=== PATIENT | female | born 1945 | race Caucasian/White ===

== ENCOUNTER 2019-11-29 16:10 | Inpatient (IN) | payer MEDICARE, MEDICAID, SELFPAY ==
[2019-12-05 04:10] VITALS: BMI 48.5
[2019-12-06] MEDS: 0.9 % Sodium Chloride Flush 3 ML SYRINGE 2 ML IVFLUSH ×4 (05:42→23:59)
[2019-12-06] MEDS: HYDROmorphone HCl 1 MG/ML SYRINGE IVPUSH ×2 (05:42→15:36)
--- NOTE | 2019-12-06 10:26 | P.PNIM_ITS ---
Subjective Subjective Date of Service: 12/06/19 Interval History: appears comfortable Physical Exam Vital Signs and I&O and Narrative: Vital Signs and I&O: Intake & Output 12/05/19 12/06/19 12/06/19 18:59 06:59 18:59 Output Total 60 / 60 Balance -60 / -60 Urine Output (Aver age ml/kg/hr) 0.04 Output: Output, Urine Am ount 60 / 60 Other: Urine loyola cath Urine Color Yellow Body Mass Index 48.5 Const: General: comfortable Resp: Effort & Inspection: normal respiratory effort Objective Data Current Medications Generic Name Dose Route Start Last Admin Trade Name Freq PRN Reason Stop Dose Admin Acetaminophen 650 mg 12/06/19 00:00 Acetaminophen 325 Mg Tablet PO Q6H PRN Pain, Mild (Pain Scale 1-3)/FEVER Hydromorphone HCl 1 mg 12/06/19 00:00 12/06/19 05:42 Hydromorphone Hcl 1 Mg/Ml Syringe IVPUSH 1 mg Q30M PRN Administration Pain, Moderate (Pain Scale 4-6 Hydromorphone HCl 2 mg 12/06/19 00:00 Hydromorphone Hcl 2 Mg/Ml Vial IVPUSH Q30M PRN MOD PAIN OR NURSING MANUEVERS Lorazepam 1 mg 12/06/19 00:00 Lorazepam 2 Mg/Ml Vial IVPUSH Q6H PRN anxiety/restlessness Ondansetron HCl 4 mg 12/06/19 00:00 Ondansetron Hcl 4 Mg/2 Ml Vial IVPUSH Q8H PRN Nausea and Vomiting Sodium Chloride 2 ml 12/06/19 00:00 12/06/19 05:42 0.9 % Sodium Chloride Flush 3 Ml Syringe IVFLUSH 2 ml QSHIFT RABIA Administration Labs CBC & Chem 7: 12/02/19 05:35 12/02/19 05:35 Labs: Laboratory Results - last 24 hr 12/03/19 12/03/19 12/03/19 05:24 05:24 05:24 MCV 89.8 MCH 30.7 MCHC 34.2 RDW Coeff of Rafa 15.9 Plt Count 113 L MPV 13.1 H Immature Gran % (Auto) 0.6 H Neut % (Auto) 93.2 H Lymph % (Auto) 2.7 L [place] % (Auto) 2.4 Eos % (Auto) 0.8 Baso % (Auto) 0.3 Abs Immat Gran (auto) 0.11 H Absolute Lymphs (auto) 0.5 L Absolute Monos (auto) 0.5 Absolute Eos (auto) 0.2 Absolute Basos (auto) 0.1 Absolute Nucleated RBC 0.110 H Nucleated RBC % (auto) 0.6 H Absolute Neutrophils 17.6 H Smear Tech's Comments VERIFIED VBG pH 7.33 VBG pCO2 46 VBG pO2 52 VBG HCO3 24 VBG O2 Sat (Glen) 86.6 H VBG Base Excess -2.3 FiO2 . Bicarbonate 22 Anion Gap 18 Estimated Creat Clear 18.6 Est GFR (Non-Af Amer) 12 POC Glucose Random Glucose 266 H D Calcium 8.8 Phosphorus 4.8 H Magnesium 1.7 Albumin 3.1 L 12/03/19 12/03/19 07:30 11:31 MCV MCH MCHC RDW Coeff of Rafa Plt Count MPV Immature Gran % (Auto) Neut % (Auto) Lymph % (Auto) [place] % (Auto) Eos % (Auto) Baso % (Auto) Abs Immat Gran (auto) Absolute Lymphs (auto) Absolute Monos (auto) Absolute Eos (auto) Absolute Basos (auto) Absolute Nucleated RBC Nucleated RBC % (auto) Absolute Neutrophils Smear Tech's Comments VBG pH VBG pCO2 VBG pO2 VBG HCO3 VBG O2 Sat (Glen) VBG Base Excess FiO2 Bicarbonate Anion Gap Estimated Creat Clear Est GFR (Non-Af Amer) POC Glucose 236 H 243 H Random Glucose Calcium Phosphorus Magnesium Albumin
[2019-12-06] MEDS: HYDROmorphone HCl 2 MG/ML VIAL IVPUSH ×2 (20:15→23:59)
[2019-12-06 23:52] VITALS: RESP 15
[2019-12-07] MEDS: HYDROmorphone HCl 2 MG/ML VIAL IVPUSH ×7 (02:24→22:50)
[2019-12-07] MEDS: 0.9 % Sodium Chloride Flush 3 ML SYRINGE 2 ML IVFLUSH ×3 (07:36→22:50)
--- NOTE | 2019-12-07 12:11 | MHC.CM.PN ---
per multidis rounds pt remains comfort care
--- NOTE | 2019-12-07 13:00 | HO.PM.IMPN ---
Subjective Subjective Date of Service: 12/07/19 Interval History: appears comfortable Physical Exam Vital Signs and I&O and Narrative: Vital Signs and I&O: Vital Signs Resp 15 12/06/19 23:52 Intake & Output 12/06/19 12/07/19 12/07/19 18:59 06:59 18:59 Output Total 0 / 0 Balance 0 / 0 Urine Output (Aver age ml/kg/hr) 0.00 Output: Output, Urine Am ount 0 / 0 Other: NPO Yes Urine loyola Urine Color none Continuous Bladd er Irrigation Fluid - Amount I nstilled Urethral 0 Body Mass Index 48.5 Const: General: comfortable Resp: Effort & Inspection: normal respiratory effort Objective Data Current Medications Generic Name Dose Route Start Last Admin Trade Name Freq PRN Reason Stop Dose Admin Acetaminophen 650 mg 12/06/19 00:00 Acetaminophen 325 Mg Tablet PO Q6H PRN Pain, Mild (Pain Scale 1-3)/FEVER Hydromorphone HCl 1 mg 12/06/19 00:00 12/06/19 15:36 Hydromorphone Hcl 1 Mg/Ml Syringe IVPUSH 1 mg Q30M PRN Administration Pain, Moderate (Pain Scale 4-6 Hydromorphone HCl 2 mg 12/06/19 00:00 12/07/19 11:51 Hydromorphone Hcl 2 Mg/Ml Vial IVPUSH 2 mg Q30M PRN Administration MOD PAIN OR NURSING MANUEVERS Lorazepam 1 mg 12/06/19 00:00 Lorazepam 2 Mg/Ml Vial IVPUSH Q6H PRN anxiety/restlessness Ondansetron HCl 4 mg 12/06/19 00:00 Ondansetron Hcl 4 Mg/2 Ml Vial IVPUSH Q8H PRN Nausea and Vomiting Sodium Chloride 2 ml 12/06/19 00:00 12/07/19 07:36 0.9 % Sodium Chloride Flush 3 Ml Syringe IVFLUSH 2 ml QSHIFT RABIA Administration Labs CBC & Chem 7: 12/02/19 05:35 12/02/19 05:35 Assessment and Plan (1) Septic shock: Status: Acute (2) Bacteremia due to Pseudomonas: Status: Acute (3) Acute kidney injury: Status: Acute (4) Afib: Status: Acute Assessment and Plan: 74-year-old female was admitted to the ICU for septic shock, patient was transitioned to comfort measures only. She continues to look comfortable. has not required any med adjustements
[2019-12-07 18:59] VITALS: RESP 10
[2019-12-08] MEDS: HYDROmorphone HCl 2 MG/ML VIAL IVPUSH (04:10)
--- NOTE | 2019-12-08 06:36 | PC.NURSE ---
This Rn found pt not breating, md to floor to pronounce. time of [id number]
--- NOTE | 2019-12-08 07:59 | PM.DDS ---
Discharge Sum: Prov Provider Primary care physician: Unknown Physician Consults: 12/05/19 06:58 Consult to Wound Care Provider Routine Consulting Provider: Bay Silver 12/05/19 07:00 Consult to Infectious Diseases Routine Consulting Provider: Tabby Benton Reason for consultation: MEROPENEM APPROVAL Has provider been notified: Yes 12/05/19 07:05 Consult to General Surgery Routine Consulting Provider: Mahnaz Feldman Reason for consultation: LOW BP Has provider been notified: Yes Pronouncing clinician: Fabien Kumari Discharge Sum: Diag Contributing Factors (1) Septic shock: (2) Bacteremia due to Pseudomonas: (3) Acute kidney injury: (4) Afib: Discharge Sum: Summary Date and Time Date of admission: 11/29/19 16:10 Summary Details: patient was admitted for septic shock and acute renal failure. She was transitioned to comfort measures only. Patient peacefully on 12/08/2019 Additional Data Attending physician: Pieter Pandey MD
--- NOTE | 2019-12-10 07:54 | PM.DDS ---
Discharge Sum: Prov Provider Primary care physician: Unknown Physician Consults: 12/05/19 06:58 Consult to Wound Care Provider Routine Consulting Provider: Bay Silver 12/05/19 07:00 Consult to Infectious Diseases Routine Consulting Provider: Tabby Benton Reason for consultation: MEROPENEM APPROVAL Has provider been notified: Yes 12/05/19 07:05 Consult to General Surgery Routine Consulting Provider: Mahnaz Feldman Reason for consultation: LOW BP Has provider been notified: Yes Discharge Sum: Diag Contributing Factors (1) Septic shock: (2) Bacteremia due to Pseudomonas: (3) Acute kidney injury: (4) Afib: Discharge Sum: Summary Date and Time Date of admission: 11/29/19 16:10 Additional Data Attending physician: Pieter Pandey MD
== END 2019-12-08 10:40 | disposition expired | DRG 871 ==
PROVIDERS: Admitting Provider Internal Medicine Pulmonary Disease; Emergency Provider Physician Assistant; Visit Provider Internal Medicine
DX: A41.52 Sepsis due to Pseudomonas (principal); L89.154 Pressure ulcer of sacral region, stage 4; R65.21 Severe sepsis with septic shock; N17.0 Acute kidney failure with tubular necrosis; Z68.42 Body mass index [BMI] 45.0-49.9, adult; N39.0 Urinary tract infection, site not specified; I13.0 Hypertensive heart and chronic kidney disease with heart failure and stage 1 through stage 4 chronic kidney disease, or unspecified chronic kidney disease; I50.32 Chronic diastolic (congestive) heart failure; K81.0 Acute cholecystitis; E66.01 Morbid (severe) obesity due to excess calories; R79.1 Abnormal coagulation profile; B96.20 Unspecified Escherichia coli [E. coli] as the cause of diseases classified elsewhere; E11.22 Type 2 diabetes mellitus with diabetic chronic kidney disease; I48.91 Unspecified atrial fibrillation; N18.9 Chronic kidney disease, unspecified; Z87.440 Personal history of urinary (tract) infections; Z79.4 Long term (current) use of insulin; Z79.01 Long term (current) use of anticoagulants; Z79.82 Long term (current) use of aspirin; Z79.899 Other long term (current) drug therapy
CPT/HCPCS: 36415; 71045; 74018; 74176; 76705; 80048; 80051; 80053; 80076; 80202; 81001; 82040; 82565; 82803; 82947; 83605; 83735; 83880; 84100; 84520; 85007; 85025; 85027; 85610; 85730; 86850; 86900; 86901; 87040; 87077; 87088; 87186; 93005; 93306; 96361; 96365; 96366; 96375; 99285; C1758; J0610; J1170; J2185; J2250; J2370; J2405; J2543; J3010; J3370; J3430; P9017; P9047